=== PATIENT | male | born 2000 | race Caucasian/White ===

== ENCOUNTER 2024-09-06 08:41 | Emergency (ER) | payer MEDICAID ==
[~2024-09-06] VITALS: Ht 175.3 cm; Wt 90.7 kg
[2024-09-06] MEDS ORDERED: MORPHINE SULFATE INJ 4 MG/ML DISP.SYRIN ONE (09:38)
[2024-09-06] MEDS ORDERED: ONDANSETRON HCL/PF 4 MG/2 ML VIAL ONE (09:38)
[2024-09-06 09:43] LABS: BASOPHILS % (AUTO) 0.1 % (0.0-2.0); HEMATOCRIT 44 % (39-51); HEMOGLOBIN 15.1 g/dL (13.5-17.5); LYMPHOCYTES # (AUTO) 0.7 K/uL (0.8-4.8); LYMPHOCYTES % (AUTO) 6.7 % (20.0-44.0); MEAN CORPUSCULAR HEMOGLOBIN 29 PG (26.0-33.0); MEAN CORPUSCULAR HGB CONC 35 g/dl (31.0-36.0); MEAN CORPUSCULAR VOLUME 85 fL (80-96); MONOCYTES # (AUTO) 0.1 K/uL (0.1-1.30); MONOCYTES % (AUTO) 1.4 % (2.0-12.0); NEUTROPHILS # (AUTO) 9.4 K/uL (1.8-8.9); NEUTROPHILS % (AUTO) 91.8 % (43.0-81.0); PLATELET COUNT (AUTO) 166 K/uL (150-450); RED BLOOD CELL COUNT(AUTO) 5.16 MIL/uL (4.5-6.0); RED CELL DISTRIBUTION WIDTH 13.1 % (11.5-15.0); WHITE BLOOD COUNT (AUTO) 10.2 K/uL (4.3-11.0)
[2024-09-06 09:49] LABS: CALCIUM, SERUM 9.8 mg/dL (8.5-10.1); CREATININE 0.9 mg/dL (0.6-1.3); POTASSIUM 3.3 mmol/L (3.5-5.1)
[2024-09-06] MEDS: IV NS 0.9% 1,000 ML BAG IV ONE (09:54)
[2024-09-06] MEDS: ONDANSETRON HCL/PF 4 MG/2 ML VIAL IVP ONE (09:55)
[2024-09-06] MEDS: MORPHINE SULFATE INJ 2 MG/ML DISP.SYRIN IV ONE (09:55)
[2024-09-06 10:13] LABS: ALBUMIN 4.9 g/dL (3.4-5.0); BILIRUBIN,DIRECT 0.3 mg/dL (0.0-0.2); BILIRUBIN,TOTAL 1.5 mg/dL (0.2-1.0); TOTAL PROTEIN, SERUM 8.5 g/dL (6.4-8.2)
[2024-09-06] MEDS ORDERED: ONDA4TAB11 PO (10:26)
[2024-09-06] MEDS ORDERED: GLYC-30 RC (10:26)
[2024-09-06] MEDS ORDERED: DOCU-141 PO (10:26)
[2024-09-06 10:51] VITALS: BP 150/94; TEMP 98.9; O2SAT 99
== END 2024-09-06 10:35 | disposition home or self-care (01) ==
LOC: ER 08:41
DX: R10.84 Generalized abdominal pain (principal); R11.2 Nausea with vomiting, unspecified; K59.00 Constipation, unspecified; I10 Essential (primary) hypertension; Z79.899 Other long term (current) drug therapy
CPT/HCPCS: 99285; 74176; 96374; 96361; 96375; 85025; 80048; 83690; 80076; 36415; J2270; J2405; J7030

== ENCOUNTER 2024-09-07 22:50 | Emergency (ER) | payer MEDICAID ==
[~2024-09-07] VITALS: Ht 175.3 cm; Wt 74.8 kg
[~2024-09-07 22:50] MED LIST: DOCU-141 PO; GLYC-30 RC; ONDA4TAB11 PO
[2024-09-07] MEDS ORDERED: ONDANSETRON HCL/PF 4 MG/2 ML VIAL ONE (23:28)
[2024-09-07] MEDS ORDERED: LIDOCAINE VISCOUS 2% UD 15 ML UDC ONE (23:28)
[2024-09-07] MEDS ORDERED: DICYCLOMINE HCL INJ 20 MG/2 ML AMPUL IM ONE (23:28)
[2024-09-07] MEDS ORDERED: MAG HYDROX/AL HYDROX/SIMETH 30 ML UDC ONE (23:28)
[2024-09-07] MEDS: DICYCLOMINE HCL INJ 20 MG/2 ML AMPUL IM ONE (23:40)
[2024-09-07] MEDS: ONDANSETRON HCL/PF 4 MG/2 ML VIAL IM ONE (23:40)
[2024-09-07] MEDS: LIDOCAINE VISCOUS 2% UD 15 ML UDC MM ONE (23:41)
[2024-09-07] MEDS: MAG HYDROX/AL HYDROX/SIMETH 30 ML UDC PO ONE (23:41)
[2024-09-08] MEDS ORDERED: ONDANSETRON HCL/PF 4 MG/2 ML VIAL ONE (00:11)
[2024-09-08] MEDS: ONDANSETRON HCL/PF 4 MG/2 ML VIAL IVP ONE (00:20)
[2024-09-08] MEDS: IV NS 0.9% 1,000 ML BAG IV ONE (00:20)
[2024-09-08 00:33] LABS: BASOPHILS % (AUTO) 0.2 % (0.0-2.0); EOSINOPHILS % (AUTO) 0.2 % (0.0-6.0); HEMATOCRIT 43 % (39-51); HEMOGLOBIN 14.9 g/dL (13.5-17.5); LYMPHOCYTES % (AUTO) 14.4 % (20.0-44.0); MEAN CORPUSCULAR HEMOGLOBIN 29 PG (26.0-33.0); MEAN CORPUSCULAR HGB CONC 34 g/dl (31.0-36.0); MEAN CORPUSCULAR VOLUME 85 fL (80-96); MONOCYTES # (AUTO) 0.3 K/uL (0.1-1.30); NEUTROPHILS # (AUTO) 5.7 K/uL (1.8-8.9); NEUTROPHILS % (AUTO) 81.2 % (43.0-81.0); PLATELET COUNT (AUTO) 140 K/uL (150-450); RED BLOOD CELL COUNT(AUTO) 5.12 MIL/uL (4.5-6.0); RED CELL DISTRIBUTION WIDTH 13.2 % (11.5-15.0); WHITE BLOOD COUNT (AUTO) 7.1 K/uL (4.3-11.0)
[2024-09-08] MEDS ORDERED: PANT40TA2 PO (00:37)
[2024-09-08] MEDS ORDERED: MORPHINE SULFATE INJ 2 MG/ML DISP.SYRIN ONE (00:45)
[2024-09-08] MEDS: MORPHINE SULFATE INJ 2 MG/ML DISP.SYRIN IV ONE (00:47)
[2024-09-08 00:50] LABS: ALBUMIN 4.4 g/dL (3.4-5.0); BILIRUBIN,DIRECT 0.2 mg/dL (0.0-0.2); BILIRUBIN,TOTAL 0.9 mg/dL (0.2-1.0); CALCIUM, SERUM 9.2 mg/dL (8.5-10.1); CREATININE 1.1 mg/dL (0.6-1.3); TOTAL PROTEIN, SERUM 7.9 g/dL (6.4-8.2)
[2024-09-08] MEDS ORDERED: POTASSIUM CHLORIDE 20 MEQ TAB.PRT.SR PO ONE (01:38)
[2024-09-08] MEDS: POTASSIUM CHLORIDE 20 MEQ TAB.PRT.SR PO ONE (01:49)
[2024-09-08 01:53] VITALS: BP 140/101; TEMP 98.4; O2SAT 98
== END 2024-09-08 01:53 | disposition home or self-care (01) ==
LOC: ER 23:01
DX: R10.13 Epigastric pain (principal); K21.9 Gastro-esophageal reflux disease without esophagitis; R11.2 Nausea with vomiting, unspecified; I10 Essential (primary) hypertension; Z79.899 Other long term (current) drug therapy
CPT/HCPCS: 99285; 96372 ×2; 74176; 96374; 96361; 96375; 85025; 80048; 83690; 80076; 36415; J7030; J0500; J2405; J2270

== ENCOUNTER 2025-04-10 13:49 | Emergency (ER) | payer MEDICAID ==
[~2025-04-10] VITALS: Ht 177.8 cm; Wt 90.7 kg
[~2025-04-10 13:49] MED LIST changes: +PANT40TA2 PO
[2025-04-10 13:57] VITALS: BP 156/93; TEMP 98
[2025-04-10 15:00] LABS: APPEARANCE,URINE CLEAR (CLEAR); BLOOD, URINE NEGATIVE Ery/uL (NEGATIVE); LEUKOCYTE ESTERASE ,URINE 1+ (NEGATIVE); NITRITE, URINE NEGATIVE (NEGATIVE); UGLUCOSE NEGATIVE (NEGATIVE)
[2025-04-10 15:16] LABS: ADD URINE CULTURE YES
[2025-04-10 15:17] LABS: SQUAMOUS EPITHELIAL CELL,UR Few /HPF (None Seen)
[2025-04-10] MEDS ORDERED: PHEN-705 PO (15:32)
[2025-04-10] MEDS ORDERED: SULF1TAB48 PO (15:33)
[2025-04-10 15:39] VITALS: O2SAT 98
== END 2025-04-10 15:40 | disposition home or self-care (01) ==
LOC: ER 14:02
DX: N30.00 Acute cystitis without hematuria (principal); I10 Essential (primary) hypertension; Z79.899 Other long term (current) drug therapy
CPT/HCPCS: 81001; 87086-TC

== ENCOUNTER 2025-04-18 16:05 | Emergency (ER) | payer MEDICAID ==
[~2025-04-18] VITALS: Ht 175.3 cm; Wt 90.7 kg
[~2025-04-18 16:05] MED LIST changes: +PHEN-705 PO; +SULF1TAB48 PO
[2025-04-18 16:10] VITALS: BP 134/77; TEMP 98.3; O2SAT 96
[2025-04-18] MEDS ORDERED: DOXY100C2 PO (18:08)
[2025-04-18] MEDS ORDERED: CEFTRIAXONE 1 G VIAL ONE (18:17)
[2025-04-18] MEDS ORDERED: DOXYCYCLINE HYCLATE (100 MG) 100 MG TABLET ONE (18:18)
[2025-04-18] MEDS ORDERED: LIDOCAINE /MPF 1% VIAL 5 ML VIAL ONE (18:18)
[2025-04-18] MEDS: DOXYCYCLINE HYCLATE (100 MG) 100 MG TABLET PO ONE (18:28)
[2025-04-18] MEDS: CEFTRIAXONE 1 G VIAL IM ONE (18:28)
[2025-04-21 13:08] LABS: CHLAMYDIA TRACHOMATIS NAA Negative (Negative); NEISSERIA GONORRHOEAE NAA Negative (Negative)
== END 2025-04-18 18:30 | disposition home or self-care (01) ==
LOC: ER 16:08
DX: R30.0 Dysuria (principal); I10 Essential (primary) hypertension; Z79.899 Other long term (current) drug therapy
CPT/HCPCS: 99283; 96372; 87491; 87591; J0696; J3490

== ENCOUNTER 2025-04-21 17:55 | Emergency (ER) | payer MEDICAID ==
[~2025-04-21] VITALS: Ht 175.3 cm; Wt 90.7 kg
[~2025-04-21 17:55] MED LIST changes: +DOXY100C2 PO
[2025-04-21 19:22] LABS: APPEARANCE,URINE CLEAR (CLEAR); BLOOD, URINE NEGATIVE Ery/uL (NEGATIVE); LEUKOCYTE ESTERASE ,URINE TRACE (NEGATIVE); NITRITE, URINE NEGATIVE (NEGATIVE); UGLUCOSE NEGATIVE (NEGATIVE)
[2025-04-21 19:45] LABS: ADD URINE CULTURE YES; SQUAMOUS EPITHELIAL CELL,UR 0-2 /HPF (None Seen)
[2025-04-21] MEDS ORDERED: PHEN-895 PO (19:51)
[2025-04-21 20:07] VITALS: BP 134/76; TEMP 98.5; O2SAT 100
== END 2025-04-21 21:20 | disposition home or self-care (01) ==
LOC: ER 17:57
DX: N34.2 Other urethritis (principal); I10 Essential (primary) hypertension; Z79.899 Other long term (current) drug therapy; Z91.048 Other nonmedicinal substance allergy status
CPT/HCPCS: 81001; 87086-TC